=== PATIENT | female | born 1935 | race Caucasian/White ===

== ENCOUNTER 2019-05-28 10:53 | Observation (INO) ==
[2019-05-28] MEDS ORDERED: ASPIRIN 325 MG TABLET PO STA (11:14)
[2019-05-28] MEDS ORDERED: ENOXAPARIN 100 MG/ML SYRINGE SUBCUT STA (11:14)
[2019-05-28] MEDS ORDERED: NITROGLYCERIN 2% OINT 1 INCH/GM PACK TOP STA (11:14)
[2019-05-28] MEDS ORDERED: ALUM/MAG/SIMETH/LIDO VISC 1:1 30 ML BOTTLE PO STA (11:14)
[2019-05-28 11:28] LABS: Basophils % 0.6 % (0.0-0.8); Eosinophils # 0.1 10*3/uL (0.0-0.87); Eosinophils % 1.4 % (0.00-10.9); Hematocrit 32.9 VOL% (35.7-47.0); Hemoglobin 10.4 GM/DL (12.0-16.0); Immature Granulocytes % 0.2 %; Immature Granulocytes Absolute 0.01 #; Lymphocytes # 0.6 10*3/uL (1.4-4.0); Lymphocytes % 11.9 % (21.3-54.2); Mean Corpuscular HGB Conc 31.6 GM/DL (32-36); Mean Corpuscular Volume 88.2 FL (87-102); Monocytes % 7.9 % (1.7-12.7); Platelet Count 130 T/CUMM (130-400); Red Blood Count 3.73 MC/CUMM (3.8-5.5); Red Cell Distribution Width 17.2 % (9.3-17.3); White Blood Count 4.9 T/CUMM (4-12)
[2019-05-28 11:50] LABS: Hypochromasia 1+; Microcytosis 1+; Ovalocytes Few
[2019-05-28 12:01] LABS: PT Patient Result 10.6 SECS (9.6-12.2); Partial Thromboplastin Time 24.1 SECS (20.8-36.0)
[2019-05-28 12:16] LABS: Alanine Aminotransferase 23 U/L (13-56); Albumin 3.9 G/DL (3.4-5.0); Alkaline Phosphatase 66 U/L (45-117); Aspartate Amino Transferase 25 U/L (0-37); Bilirubin,Total < 0.39 MG/DL (0.2-1.0); Blood Urea Nitrogen 16 MG/DL (7-18); Calcium 8.6 MG/DL (8.5-10.1); Estimated Glom Filtration Rate 45 ML/MIN; Glucose 121 MG/DL (74-106); Osmolality,Calculated 278.5 MOS/KG (273-304); Total Protein 7.3 G/DL (6.4-8.3)
[2019-05-28] MEDS ORDERED: NITROGLYCERIN SL 0.4 MG TABLET SL PRN (16:28)
[2019-05-28] MEDS: FERROUS SULFATE 325 MG TABLET PO SCH (20:29)
[2019-05-28] MEDS: MONTELUKAST 10 MG TABLET PO SCH (20:29)
[2019-05-28] MEDS: METOPROLOL TARTRATE 25 MG TABLET PO SCH (20:29)
[2019-05-28] MEDS: CILOSTAZOL 100 MG TABLET PO SCH (20:30)
[2019-05-28] MEDS: BUDESONIDE/FORMOTEROL 160-4.5 INHALER 6 GM INH SCH (20:30)
[2019-05-28] MEDS: ATORVASTATIN 40 MG TABLET PO SCH (20:30)
[2019-05-28] MEDS: DONEPEZIL 5 MG TABLET PO SCH (20:30)
[2019-05-28] MEDS: HydrOXYzine PAMOATE 25 MG CAPSULE PO PRN (23:33)
[2019-05-29 04:42] LABS: Basophils # 0.1 10*3/uL (0.0-0.2); Basophils % 1.3 % (0.0-0.8); Eosinophils # 0.1 10*3/uL (0.0-0.87); Hematocrit 34.3 VOL% (35.7-47.0); Hemoglobin 10.5 GM/DL (12.0-16.0); Immature Granulocytes % 0.3 %; Immature Granulocytes Absolute 0.01 #; Lymphocytes # 1.4 10*3/uL (1.4-4.0); Lymphocytes % 33.9 % (21.3-54.2); Mean Corpuscular HGB Conc 30.6 GM/DL (32-36); Mean Corpuscular Volume 89.6 FL (87-102); Mean Platelet Volume 10.4 FL (9.6-12.0); Monocytes % 9.3 % (1.7-12.7); Neutrophils % 53.2 % (38.7-73.9); Platelet Count 102 T/CUMM (130-400); Red Blood Count 3.83 MC/CUMM (3.8-5.5); Red Cell Distribution Width 16.6 % (9.3-17.3)
[2019-05-29 05:01] LABS: Albumin 3.4 G/DL (3.4-5.0); Bilirubin,Total 0.5 MG/DL (0.2-1.0); Osmolality,Calculated 282.3 MOS/KG (273-304); Total Protein 5.8 G/DL (6.4-8.3)
[2019-05-29 05:07] LABS: Free T4 (Free Thyroxine) 1.41 NG/DL (0.76-1.46); Thyroid Stimulating Hormone 8.38 uIU/ml (0.358-3.74)
[2019-05-29] MEDS: LEVOTHYROXINE 75 MCG TABLET PO SCH (06:19)
[2019-05-29] MEDS: BUDESONIDE/FORMOTEROL 160-4.5 INHALER 6 GM INH SCH ×2 (08:50→20:24)
[2019-05-29] MEDS: LOSARTAN 25 MG TABLET PO SCH (09:43)
[2019-05-29] MEDS: ISOSORBIDE MONONITRATE 60 MG TABLET PO SCH (09:43)
[2019-05-29] MEDS: METOPROLOL TARTRATE 25 MG TABLET PO SCH ×2 (09:43→20:13)
[2019-05-29] MEDS: AMIODARONE 200 MG TABLET PO SCH (09:43)
[2019-05-29] MEDS: CLOPIDOGREL 75 MG TABLET PO SCH (09:44)
[2019-05-29] MEDS: PANTOPRAZOLE 40 MG TABLET PO SCH (09:44)
[2019-05-29] MEDS: ASPIRIN EC 81 MG TABLET PO SCH (09:44)
[2019-05-29] MEDS: ESCITALOPRAM 10 MG TABLET PO SCH (09:44)
[2019-05-29] MEDS: FERROUS SULFATE 325 MG TABLET PO SCH ×2 (09:44→20:24)
[2019-05-29] MEDS: CILOSTAZOL 100 MG TABLET PO SCH ×2 (09:45→20:24)
[2019-05-29 11:35] LABS: Risk Ratio 1.98; VLDL CHOLESTEROL 20.2 MG/DL
[2019-05-29] MEDS ORDERED: MAGNESIUM SULF RIDER 2 GM in PREMIX 1 EACH IV PRN (12:01)
[2019-05-29] MEDS ORDERED: POTASSIUM CHLORIDE RIDER 10 MEQ in PREMIX 1 EACH IV PRN (12:01)
[2019-05-29] MEDS: POTASSIUM CHLORIDE 20 MEQ TABLET PO PRN ×4 (13:08→19:02)
[2019-05-29] MEDS: MONTELUKAST 10 MG TABLET PO SCH (20:23)
[2019-05-29] MEDS: ATORVASTATIN 40 MG TABLET PO SCH (20:23)
[2019-05-29] MEDS: DONEPEZIL 5 MG TABLET PO SCH (20:23)
[2019-05-29] MEDS: POTASSIUM CHLORIDE 20 MEQ TABLET PO SCH (20:23)
[2019-05-29] MEDS: HydrOXYzine PAMOATE 25 MG CAPSULE PO PRN (23:43)
[2019-05-30 01:48] LABS: Osmolality,Calculated 286.1 MOS/KG (273-304)
[2019-05-30 02:11] LABS: Basophils % 0.7 % (0.0-0.8); Eosinophils # 0.1 10*3/uL (0.0-0.87); Eosinophils % 1.6 % (0.00-10.9); Hematocrit 32.8 VOL% (35.7-47.0); Hemoglobin 9.9 GM/DL (12.0-16.0); Immature Granulocytes % 0.2 %; Immature Granulocytes Absolute 0.01 #; Lymphocytes # 1.6 10*3/uL (1.4-4.0); Lymphocytes % 25.3 % (21.3-54.2); Mean Corpuscular HGB Conc 30.2 GM/DL (32-36); Mean Corpuscular Volume 89.9 FL (87-102); Monocytes % 9.3 % (1.7-12.7); Neutrophils % 62.9 % (38.7-73.9); Red Blood Count 3.65 MC/CUMM (3.8-5.5); Red Cell Distribution Width 16.7 % (9.3-17.3); White Blood Count 6.1 T/CUMM (4-12)
[2019-05-30 02:58] LABS: Platelet Count 229 T/CUMM (130-400)
[2019-05-30 03:15] LABS: Anisocytosis 1+; Band Neutrophils 4 % (0-10); Lymphocytes 22 % (20-55); Nucleated Red Blood Cells 1 (0-5); Segmented Neutrophils 70 % (50-85); Total Cells Counted 100
[2019-05-30 03:16] LABS: Ovalocytes 1+; Platelet Estimate Normal
[2019-05-30] MEDS ORDERED: DIAZEPAM 5 MG TABLET PO ONE (06:00)
[2019-05-30] MEDS ORDERED: diphenhydrAMINE CAP 25 MG CAPSULE PO ONE (06:00)
[2019-05-30] MEDS: SODIUM CHLORIDE 0.9% 1,000 ML IV SCH ×3 (07:04→21:45)
[2019-05-30] MEDS: LEVOTHYROXINE 75 MCG TABLET PO SCH (07:23)
[2019-05-30] MEDS: ISOSORBIDE MONONITRATE 60 MG TABLET PO SCH (10:55)
[2019-05-30] MEDS: ESCITALOPRAM 10 MG TABLET PO SCH (10:55)
[2019-05-30] MEDS: CLOPIDOGREL 75 MG TABLET PO SCH (10:55)
[2019-05-30] MEDS: POTASSIUM CHLORIDE 20 MEQ TABLET PO SCH ×2 (10:55→21:48)
[2019-05-30] MEDS: PANTOPRAZOLE 40 MG TABLET PO SCH (10:55)
[2019-05-30] MEDS: FERROUS SULFATE 325 MG TABLET PO SCH ×2 (10:55→21:48)
[2019-05-30] MEDS: CILOSTAZOL 100 MG TABLET PO SCH ×2 (10:55→21:51)
[2019-05-30] MEDS: ASPIRIN EC 81 MG TABLET PO SCH (10:55)
[2019-05-30] MEDS: LOSARTAN 25 MG TABLET PO SCH (10:55)
[2019-05-30] MEDS: BUDESONIDE/FORMOTEROL 160-4.5 INHALER 6 GM INH SCH ×2 (10:55→21:55)
[2019-05-30] MEDS: METOPROLOL TARTRATE 25 MG TABLET PO SCH ×2 (10:55→21:48)
[2019-05-30] MEDS: AMIODARONE 200 MG TABLET PO SCH (10:56)
[2019-05-30] MEDS: MONTELUKAST 10 MG TABLET PO SCH (21:47)
[2019-05-30] MEDS: ATORVASTATIN 40 MG TABLET PO SCH (21:47)
[2019-05-30] MEDS: DONEPEZIL 5 MG TABLET PO SCH (21:48)
[2019-05-31 06:07] LABS: Calcium 7.7 MG/DL (8.5-10.1); Osmolality,Calculated 285.8 MOS/KG (273-304)
[2019-05-31] MEDS: LEVOTHYROXINE 75 MCG TABLET PO SCH (06:29)
[2019-05-31] MEDS: SODIUM CHLORIDE 0.9% 1,000 ML IV SCH (06:30)
[2019-05-31 08:41] VITALS: BP 123/57
[2019-05-31] MEDS: ASPIRIN EC 81 MG TABLET PO SCH (09:00)
[2019-05-31] MEDS: FERROUS SULFATE 325 MG TABLET PO SCH (09:00)
[2019-05-31] MEDS: ISOSORBIDE MONONITRATE 60 MG TABLET PO SCH (09:00)
[2019-05-31] MEDS: CLOPIDOGREL 75 MG TABLET PO SCH (09:00)
[2019-05-31] MEDS: AMIODARONE 200 MG TABLET PO SCH (09:00)
[2019-05-31] MEDS: CILOSTAZOL 100 MG TABLET PO SCH (09:01)
[2019-05-31] MEDS: LOSARTAN 25 MG TABLET PO SCH (09:01)
[2019-05-31] MEDS: ESCITALOPRAM 10 MG TABLET PO SCH (09:01)
[2019-05-31] MEDS: POTASSIUM CHLORIDE 20 MEQ TABLET PO SCH (09:02)
[2019-05-31] MEDS: PANTOPRAZOLE 40 MG TABLET PO SCH (09:02)
[2019-05-31] MEDS: BUDESONIDE/FORMOTEROL 160-4.5 INHALER 6 GM INH SCH (09:02)
[2019-05-31] MEDS: METOPROLOL TARTRATE 25 MG TABLET PO SCH (09:02)
[2019-06-19] MEDS ORDERED: CYANOCOBALAMIN 1000 MCG/1 ML VIAL IM SCH (09:00)
== END 2019-05-31 11:14 | disposition home or self-care (01) ==
LOC: EDBD → EDUNIT# → N.EDINP 10:53 → N.ED 10:53 → SUATTDRO 14:15 → N.EDINP 15:17 → N.2W 15:42 → N.TELEN 05-30 09:46
PROVIDERS: ADMIT Internal Medicine Nephrology; ATTEND Internal Medicine

== ENCOUNTER 2019-09-14 23:49 | Observation (INO) ==
[2019-09-15 01:45] LABS: Apearance,Urine CLEAR (Clear); Bilirubin,Urine Negative (Negative); Blood, Urine Negative (Negative); Glucose,Urine (UA) Negative (Negative); Hyaline Casts,Urine 9 /LPF (0-3); Ketones,Urine Negative (Negative); Mucus,Urine Occasional /LPF (Occasional); Nitrite,Urine Negative (Negative); Protein,Urine Negative; RBC,Urine 2 /HPF (0-4); Squamous Epithelial Cell,Urine Occasional /HPF (0-10); Urine Color Yellow (Yellow); Urine Specific Gravity 1.025 (1.001-1.035); Urine Urobilinogen < 2.0 EU/DL (0.2-1.0); WBC,Urine 3 /HPF (0-6)
[2019-09-15 02:21] LABS: Basophils # 0.1 10*3/uL (0.0-0.2); Basophils % 0.7 % (0.0-0.8); Eosinophils # 0.1 10*3/uL (0.0-0.87); Eosinophils % 1.5 % (0.00-10.9); Hemoglobin 10.1 GM/DL (12.0-16.0); Immature Granulocytes % 0.3 %; Immature Granulocytes Absolute 0.02 #; Lymphocytes # 0.9 10*3/uL (1.4-4.0); Lymphocytes % 12.8 % (21.3-54.2); Mean Corpuscular HGB Conc 31.6 GM/DL (32-36); Mean Corpuscular Volume 94.1 FL (87-102); Mean Platelet Volume 10.2 FL (9.6-12.0); Monocytes % 10.3 % (1.7-12.7); Neutrophils % 74.4 % (38.7-73.9); Platelet Count 42 T/CUMM (130-400); Red Cell Distribution Width 14.6 % (9.3-17.3); White Blood Count 7.2 T/CUMM (4-12)
[2019-09-15 02:36] LABS: Albumin 3.6 G/DL (3.4-5.0); Bilirubin,Total 0.4 MG/DL (0.2-1.0); Calcium 8.5 MG/DL (8.5-10.1); Osmolality,Calculated 282.3 MOS/KG (273-304); Thyroid Stimulating Hormone 9.49 uIU/ml (0.358-3.74); Total Protein 6.7 G/DL (6.4-8.3)
[2019-09-15] MEDS ORDERED: ONDANSETRON 4 MG/2 ML VIAL IV PRN (03:57)
[2019-09-15] MEDS ORDERED: ACETAMINOPHEN 325 MG TABLET PO PRN (03:57)
[2019-09-15] MEDS ORDERED: HydrOXYzine PAMOATE 25 MG CAPSULE PO PRN (04:26)
[2019-09-15] MEDS ORDERED: NITROGLYCERIN SL 0.4 MG TABLET SL PRN (04:26)
[2019-09-15 06:27] LABS: Basophils % 0.5 % (0.0-0.8); Eosinophils # 0.1 10*3/uL (0.0-0.87); Hematocrit 31.6 VOL% (35.7-47.0); Hemoglobin 10.1 GM/DL (12.0-16.0); Immature Granulocytes % 0.5 %; Immature Granulocytes Absolute 0.03 #; Lymphocytes # 0.9 10*3/uL (1.4-4.0); Lymphocytes % 14.7 % (21.3-54.2); Mean Corpuscular Volume 93.5 FL (87-102); Monocytes % 10.4 % (1.7-12.7); Neutrophils % 71.9 % (38.7-73.9); Platelet Count 93 T/CUMM (130-400); Red Blood Count 3.38 MC/CUMM (3.8-5.5); Red Cell Distribution Width 14.6 % (9.3-17.3)
[2019-09-15 06:27] LABS: Calcium 8.4 MG/DL (8.5-10.1); Osmolality,Calculated 281.3 MOS/KG (273-304)
[2019-09-15] MEDS: LEVOTHYROXINE 75 MCG TABLET PO SCH (06:42)
[2019-09-15 07:37] LABS: Platelet Estimate Decreased
[2019-09-15 07:38] LABS: Anisocytosis 2+; Macrocytosis 1+; Poikilocytosis Slight; Polychromasia Slight
[2019-09-15 07:39] LABS: Ovalocytes Few; Tear Drop Cells Few
[2019-09-15] MEDS ORDERED: CYANOCOBALAMIN 1000 MCG/1 ML VIAL IM SCH (09:00)
[2019-09-15] MEDS: BUDESONIDE/FORMOTEROL 160-4.5 INHALER 6 GM INH SCH ×2 (10:00→21:33)
[2019-09-15] MEDS: ESCITALOPRAM 10 MG TABLET PO SCH (10:33)
[2019-09-15] MEDS: METOPROLOL TARTRATE 25 MG TABLET PO SCH ×2 (10:33→21:33)
[2019-09-15] MEDS: FUROSEMIDE 40 MG TABLET PO SCH (10:33)
[2019-09-15] MEDS: ASPIRIN EC 81 MG TABLET PO SCH (10:34)
[2019-09-15] MEDS: PANTOPRAZOLE 40 MG TABLET PO SCH (10:34)
[2019-09-15] MEDS ORDERED: MONTELUKAST 10 MG TABLET PO SCH (21:00)
[2019-09-16] MEDS: LEVOTHYROXINE 75 MCG TABLET PO SCH (06:06)
[2019-09-16] MEDS: FUROSEMIDE 40 MG TABLET PO SCH (08:42)
[2019-09-16] MEDS: ASPIRIN EC 81 MG TABLET PO SCH (08:42)
[2019-09-16] MEDS: METOPROLOL TARTRATE 25 MG TABLET PO SCH (08:42)
[2019-09-16] MEDS: ESCITALOPRAM 10 MG TABLET PO SCH (08:42)
[2019-09-16] MEDS: PANTOPRAZOLE 40 MG TABLET PO SCH (08:42)
[2019-09-16] MEDS: BUDESONIDE/FORMOTEROL 160-4.5 INHALER 6 GM INH SCH (08:48)
[2019-09-16 11:33] VITALS: BP 140/68
== END 2019-09-16 13:49 ==
LOC: N.EDINP 23:49 → N.ED 23:49 → SUATTDRO 09-15 03:56 → N.3E 09-15 05:05
PROVIDERS: ADMIT Internal Medicine; ATTEND Family Medicine